=== PATIENT | male | born 1970 | race Caucasian/White ===

== ENCOUNTER 2023-12-22 13:14 | Inpatient (IN) | payer SELFPAY ==
[2023-12-22] MEDS ORDERED: Triamcinolone Acetonide 0.1% Crm 15 GM Tube TOP PRN (14:34)
[2023-12-22] MEDS: Polyethylene Glycol/Electrolytes 4,000 ML Bottle PO SCH (16:06)
[2023-12-22] MEDS: Lisinopril 10 MG Tab (OWN SUPPLY) PO SCH (20:52)
[2023-12-22] MEDS: HYDROXYZINE HCL 25 MG PO SCH (20:54)
[2023-12-22] MEDS: Brimonidine Tartrate/Timolol [Combigan 0.2%-0.5% Eye Drop] EYEBOTH SCH (20:55)
[2023-12-23] MEDS ORDERED: Non-Formulary Medication 1 Each (Multivitamin With Minerals [Multiple Vitamin] 1 EACH Tabl PO SCH (09:00)
[2023-12-23] MEDS ORDERED: [UNRECOGNIZED DRUG - OTHER] TOP SCH (09:00)
[2023-12-23] MEDS ORDERED: Non-Formulary Medication 1 Each (Aspirin [Vazalore] 81 MG Capsule) PO SCH (09:00)
[2023-12-23] MEDS ORDERED: CETIRIZINE 10 MG PO SCH (09:00)
== END 2023-12-23 13:00 | disposition home or self-care (01) | DRG 395 ==
LOC: UNDOADMIN 13:14 → VM.MS 13:14 → UNDODISIN 12-23 13:00
PROVIDERS: ADMIT Nurse Practitioner Family; ATTEND Nurse Practitioner Family
DX: K64.9 Unspecified hemorrhoids (principal); I10 Essential (primary) hypertension; E78.5 Hyperlipidemia, unspecified; I51.7 Cardiomegaly; K59.00 Constipation, unspecified; F79 Unspecified intellectual disabilities; H40.1190 Primary open-angle glaucoma, unspecified eye, stage unspecified; Z88.8 Allergy status to other drugs, medicaments and biological substances; Z79.82 Long term (current) use of aspirin; Z79.899 Other long term (current) drug therapy
CPT/HCPCS: A9270-GY

== ENCOUNTER 2023-12-23 09:36 | Day surgery (SDC) | payer MEDICAID ==
[2023-12-23] MEDS: Lactated Ringers 1,000 ML IV SCH (13:13)
[2023-12-23] MEDS ORDERED: Propofol 200 MG/20 ML SDV ONE ×2 (14:28→15:26)
[2023-12-23] MEDS ORDERED: fentaNYL 100 MCG/2 ML SDV ONE (14:28)
== END 2023-12-23 16:55 | disposition home or self-care (01) ==
LOC: VM.SDS 09:36
PROVIDERS: ATTEND Family Medicine
DX: Z12.11 Encounter for screening for malignant neoplasm of colon (principal); D12.6 Benign neoplasm of colon, unspecified; K57.30 Diverticulosis of large intestine without perforation or abscess without bleeding; I10 Essential (primary) hypertension; E78.00 Pure hypercholesterolemia, unspecified; H61.23 Impacted cerumen, bilateral; Z79.82 Long term (current) use of aspirin; Z79.899 Other long term (current) drug therapy
CPT/HCPCS: 00811; 45380; 45385; J2704; J3010; J7120